=== PATIENT | female | born 1965 | race Caucasian/White ===

== ENCOUNTER 2019-04-21 10:14 | Inpatient (IN) | payer OTHER ==
[~2019-04-21] VITALS: Ht 160 cm; Wt 61.2 kg
[~2019-04-21 10:14] MED LIST: ZOSYN 3.375 GM/50 ML IV SCH
--- NOTE | 2019-04-21 10:24 | NUR ---
ARRIVAL PT ARRIVED AMBULATORY TO ER 4. PT HAS BEEN TREATED FOR UPPER RESPIRATORY INFECTION X2 WEEKS. PT HAS BEEN ON MULTIPLE MEDICATIONS, IS CURRENTLY TAKING MUCINEX, ALBUTEROL BREATHING TREATMENTS, LEVAQUIN AND DOXYCYCLINE. PT RECENTLY SPENT 6 WEEKS IN THE [facility]. NO ACUTE DISTRESS NOTED. EDP NOTIFIED OF PT ARRIVAL.
[2019-04-21] MEDS ORDERED: PREDNISONE PO STA (10:44)
[2019-04-21] MEDS ORDERED: DILAUDID IM STA (10:44)
[2019-04-21] MEDS ORDERED: MOTRIN PO STA (10:44)
[2019-04-21 10:47] VITALS: BP 145/98
[2019-04-21] MEDS ORDERED: ATIVAN PO STA (10:47)
--- NOTE | 2019-04-21 10:49 | PCM.EKG ---
[facility] Test Date: 2019-04-21 Test Time: 10:50:09 Pat Name: SHAHRZAD MCBRIDE Department: Room: 311 Gender: F Floral Arranger: BETY : 1965 Requested By: JUAN DIEGO MCKAY Order Number: [id number] Reading MD: Juan Diego Mckay Measurements Intervals [place] Rate: 125 P: 35 RI: 150 QRS: 10 QRSD: 72 T: 21 QT: 308 QTc: 444 Interpretive Statements Sinus tachycardia Otherwise normal ECG No previous ECG available for comparison Electronically Signed On 04-21-2019 18:00:19 CDT by Juan Diego Mckay Please click the below link to view image of tracing.
--- NOTE | 2019-04-21 10:51 | ER.PDOC ---
General Chief Complaint: General Complaint Stated Complaint: PNEUMONIA TRAVEL OUT OF US: No Time seen by MD: 11:11 Source: patient Exam Limitations: no limitations History of Present Illness Timing/Duration: 1 week Severity: moderate Modifying Factors: improves with medication, improves with rest Associated Symptoms: chest pain, cough, diaphoresis, fever/chills, headaches, loss of appetite, malaise, nausea/vomiting, shortness of breath, weakness Allergies: Coded Allergies: No Known Allergies (Unverified , 04/21/19) Home Meds Reported Medications Losartan Potassium (LOSARTAN POTASSIUM) 50 Mg Tablet, 1 TAB PO DAILY, #30 TAB 5 Refills 04/21/19 Metoprolol Succinate (METOPROLOL SUCCINATE) 50 Mg Tab.er.24h, 1 TAB PO DAILY, #30 TAB 5 Refills 04/21/19 Levothyroxine Sodium (LEVOTHYROXINE SODIUM) 50 Mcg Tablet, 1 TAB PO DAILY, #30 TAB 5 Refills 04/21/19 Past Medical History Medical History: hypertension, thyroid disease Surgical History: breast augmentation, , gastric bypass, shoulder Social History Smoking: non-smoker Alcohol Use: none Drug Use: none Reviewed Nursing Reviewed: Vital Signs, Abn. 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 (04/21/19 10:41) Helicobacter Pylori (04/21/19 10:41) D-Dimer (04/21/19 10:41) Ekg-Routine (04/21/19 10:41) Xr Chest 2v (04/21/19 10:41) Influenza A&B (04/21/19 10:41) Drug Screen Medical(Ml) (04/21/19 10:44) Hydromorphone Inj (Dilaudid) (04/21/19 10:44) Ibuprofen (Motrin) (04/21/19 10:44) Erythrocyte Sedimentation Rate (04/21/19 10:44) C-Reactive Protein (04/21/19 10:44) Prednisone (Prednisone) (04/21/19 10:44) Lorazepam (Ativan) (04/21/19 10:47) Urinalysis (04/21/19 10:48) Lorazepam (Ativan) (04/21/19 11:07) Ibuprofen (Motrin) (04/21/19 11:08) Prednisone (Prednisone) (04/21/19 11:09) Hydromorphone Inj (Dilaudid) (04/21/19 11:09) Blood Culture (04/21/19 11:25) Ipratropium/Albuterol Sulfate (Duoneb 0. (04/21/19 11:29) Dexamethasone Sod Phosphate (Decadron) (04/21/19 11:29) Hiv Panel 1,2(Ml) (04/21/19 11:36) Vital Signs Date Time Temp Pulse Resp B/P (MAP) Pulse Ox O2 Delivery O2 Flow Rate FiO2 04/21/19 11:47 117 135/84 (101) 97 04/21/19 10:47 125 17 145/98 (114) Room Air 04/21/19 10:24 98.8 127 17 97 Room Air 98.8 04/21/19 10:24 98.8 125 17 98.8 Administered Medications Medications (Trade) Dose Ordered Sig/[place] Route PRN Reason Start Time Stop Time Status Last Admin Dose Admin Albuterol/ Ipratropium (Duoneb 0.5 Mg-3 Mg/3 ml Soln) 3 ml STAT STAT IH 04/21/19 11:29 04/21/19 13:47 DC 04/21/19 12:34 3 ML Dexamethasone Sodium Phosphate (Decadron) 4 mg STAT STAT IH 04/21/19 11:29 04/21/19 13:47 DC 04/21/19 12:34 4 MG Hydromorphone HCl (Dilaudid) 2 mg STAT STAT IM 04/21/19 10:44 04/21/19 10:47 DC 04/21/19 11:26 2 MG Ibuprofen (Motrin) 800 mg STAT STAT PO 04/21/19 10:44 04/21/19 10:47 DC 04/21/19 11:27 800 MG Prednisone (Prednisone) 40 mg STAT STAT PO 04/21/19 10:44 04/21/19 10:47 DC 04/21/19 11:27 40 MG Laboratory Tests Test 04/21/19 11:15 04/21/19 11:17 04/21/19 11:19 White Blood Count 8.9 10^3/uL (4.5-11.0) Red Blood Count 3.62 10^6/uL (4.00-5.20) L Hemoglobin 13.0 g/dL (12.0-15.0) Hematocrit 37.5 % (36.0-46.0) Mean Corpuscular Volume 103.6 fL (78-100) H Mean Corpuscular Hemoglobin 35.9 pg (26-34) H Mean Corpuscular Hemoglobin Concent 34.7 g/dL (33-37) Red Cell Distribution Width 12.1 % (11.5-14.5) Platelet Count 329 10^3/uL (150-400) Mean Platelet Volume 9.1 fL (7.8-11.0) Neutrophils (%) (Auto) 84.0 % (41.0-85.0) Lymphocytes (%) (Auto) 8.9 % (24.0-44.0) L Monocytes (%) (Auto) 3.8 % (5.0-12.0) L Neutrophils # (Auto) 7.5 10^3/uL (1.8-7.7) Lymphocytes # (Auto) 0.8 10^3/uL (1.0-4.8) L Monocytes # (Auto) 0.3 10^3/uL (0.3-0.8) Absolute Immature Granulocyte (auto 0.03 10^3 u/L (0-2) Immature Granulocytes % 0.30 % (0.00-0.50) Eosinophils % 2.7 % (0.0-5.0) Basophils % 0.3 % (0.0-0.2) H Basophils # 0.0 10^3/uL (0.0-0.1) Erythrocyte Sedimentation Rate 56 mm/hr (0-20) H Eosinophil Count 0.2 10^3/uL (0.0-0.2) Prothrombin Time 9.9 SEC (9.8-11.9) Prothrombin Time INR (Non-Therap) 1.0 PTT 24.5 SEC (24.67-30.72) D-Dimer 1.20 mg/L (0.19-0.49) *H Sodium Level 139 mmol/L (132-145) Potassium Level 4.2 mmol/L (3.6-5.2) Chloride Level 105.0 mmol/L (96-109) Carbon Dioxide Level 25.8 mmol/L (20.0-32) Anion Gap 12.4 Blood Urea Nitrogen 5 mg/dL (7-18) L Creatinine 0.90 mg/dL (0.59-1.40) Estimated GFR () 79.6 (>/=60) BUN/Creatinine Ratio 5.0 Glucose Level 95 mg/dL (70-110) Calcium Level 9.3 mg/dL (8.4-10.5) Total Bilirubin 0.6 mg/dL (0.2-1.0) Aspartate Amino Transferase (AST) 19 U/L (0-35) Alanine Aminotransferase (ALT) 23 U/L (12-78) Alkaline Phosphatase 88 U/L (50-136) Total Creatine Kinase 36 U/L (26-192) Troponin I < 0.02 ng/mL (0.00-0.05) C-Reactive Protein 11.89 mg/dL (0.00-5.00) H Pro-B-Type Natriuretic Peptide 260 pg/mL (0-125) H Total Protein 7.6 g/dL (6.4-8.2) Albumin 3.3 g/dL (3.4-5.0) L Globulin 4.3 Urine Opiates, Qualitative NEGATIVE ng/mL (CUT-OFF:300) Urine Methadone, Qualitative NEGATIVE ng/mL (CUT-OFF:300) Urine Amphetamine Qualitative NEGATIVE ng/mL (CUTOFF:1000) Urine Barbiturates, Qualitative NEGATIVE ng/mL (CUT-OFF:200) Urine Phencyclidine Screen NEGATIVE ng/mL (CUT-OFF:25) Urine MDMA (Ecstasy), Qualitative NEGATIVE ng/mL (CUT-OFF:300) Urine Benzodiazepines Screen POSITIVE ng/mL (CUT-OFF:200) Urine Cocaine Qualitative NEGATIVE ng/mL (CUT-OFF:300) Ur Tetrahydrocannabinol (THC) Scrn NEGATIVE ng/mL (CUT-OFF:50) Helicobacter pylori Screen POSITIVE (NEGATIVE) HIV-1 Antibody NON-REACTIVE (NONREACTIVE) HIV-2 Antibody NON-REACTIVE (NONREACTIVE) Influenza Type A Antigen NEGATIVE (NEG) Influenza B Immunofluorescence NEGATIVE (NEG) Urine Collection Type VOID Urine Color YELLOW (YELLOW) Urine Appearance CLEAR (CLEAR) Urine Bilirubin NEGATIVE MG/DL (NEGATIVE) Urine Ketones NEGATIVE (NEGATIVE) Urine Specific [place] 1.005 (1.005-1.035) Urine pH 6 (5.0-6.0) Urine Protein NEGATIVE (NEGATIVE) Urine Urobilinogen NORMAL (NEGATIVE) Urine Nitrate NEGATIVE (NEGATIVE) Urine Leukocyte Esterase NEGATIVE (NEGATIVE) Urine Blood NEGATIVE (NEGATIVE) Urine Glucose NORMAL (NEGATIVE) EKG/XRAY/CT/US EKG Comments: SINUS TACH XRAY: chest Consult/PCP Time Consult/PCP Called: 14:44 Consult/PCP: dr hayes Course Sepsis Screening Results: Posi: POSITIVE SEPSIS RISK Vitals & review Data Vital Sign - Last 24 Hours 04/21/19 04/21/19 04/21/19 04/21/19 10:24 10:24 10:47 11:47 Temp 98.8 98.8 98.8 98.8 Pulse 125 127 125 117 Resp 17 17 17 B/P (MAP) 145/98 (114) 135/84 (101) Pulse Ox 97 97 O2 Delivery Room Air Room Air Laboratory Tests Test 04/21/19 11:15 04/21/19 11:17 04/21/19 11:19 White Blood Count 8.9 10^3/uL Red Blood Count 3.62 10^6/uL Hemoglobin 13.0 g/dL Hematocrit 37.5 % Mean Corpuscular Volume 103.6 fL Mean Corpuscular Hemoglobin 35.9 pg Mean Corpuscular Hemoglobin Concent 34.7 g/dL Red Cell Distribution Width 12.1 % Platelet Count 329 10^3/uL Mean Platelet Volume 9.1 fL Neutrophils (%) (Auto) 84.0 % Lymphocytes (%) (Auto) 8.9 % Monocytes (%) (Auto) 3.8 % Neutrophils # (Auto) 7.5 10^3/uL Lymphocytes # (Auto) 0.8 10^3/uL Monocytes # (Auto) 0.3 10^3/uL Absolute Immature Granulocyte (auto 0.03 10^3 u/L Immature Granulocytes % 0.30 % Eosinophils % 2.7 % Basophils % 0.3 % Basophils # 0.0 10^3/uL Erythrocyte Sedimentation Rate 56 mm/hr Eosinophil Count 0.2 10^3/uL Prothrombin Time 9.9 SEC Prothrombin Time INR (Non-Therap) 1.0 Activated Partial Thromboplast Time 24.5 SEC D-Dimer 1.20 mg/L Sodium Level 139 mmol/L Potassium Level 4.2 mmol/L Chloride Level 105.0 mmol/L Carbon Dioxide Level 25.8 mmol/L Anion Gap 12.4 Blood Urea Nitrogen 5 mg/dL Creatinine 0.90 mg/dL Estimated GFR () 79.6 BUN/Creatinine Ratio 5.0 Glucose Level 95 mg/dL Calcium Level 9.3 mg/dL Total Bilirubin 0.6 mg/dL Aspartate Amino Transf (AST/SGOT) 19 U/L Alanine Aminotransferase (ALT/SGPT) 23 U/L Alkaline Phosphatase 88 U/L Total Creatine Kinase 36 U/L Troponin I < 0.02 ng/mL C-Reactive Protein 11.89 mg/dL Pro-B-Type Natriuretic Peptide 260 pg/mL Total Protein 7.6 g/dL Albumin 3.3 g/dL Globulin 4.3 Urine Opiates, Qualitative NEGATIVE ng/mL Urine Methadone, Qualitative NEGATIVE ng/mL Urine Amphetamine Qualitative NEGATIVE ng/mL Urine Barbiturates, Qualitative NEGATIVE ng/mL Urine Phencyclidine Screen NEGATIVE ng/mL Urine MDMA (Ecstasy), Qualitative NEGATIVE ng/mL Urine Benzodiazepines Screen POSITIVE ng/mL Urine Cocaine Qualitative NEGATIVE ng/mL Ur Tetrahydrocannabinol (THC) Scrn NEGATIVE ng/mL Helicobacter pylori Screen POSITIVE HIV-1 Antibody NON-REACTIVE HIV-2 Antibody NON-REACTIVE Influenza Type A Antigen NEGATIVE Influenza B Immunofluorescence NEGATIVE Urine Collection Type VOID Urine Color YELLOW Urine Appearance CLEAR Urine Bilirubin NEGATIVE MG/DL Urine Ketones NEGATIVE Urine Specific [place] 1.005 Urine pH 6 Urine Protein NEGATIVE Urine Urobilinogen NORMAL Urine Nitrate NEGATIVE Urine Leukocyte Esterase NEGATIVE Urine Blood NEGATIVE Urine Glucose NORMAL Sepsis Infection Criteria Pres: None O2 Sat by Pulse Oximetry: 97 Departure Time of Disposition: 18:00 Disposition: 09 ADMITTED INPATIENT Impression: Primary Impression: Pneumonia Condition: Stable Referrals: DENNISE LIZARRAGA (PCP) PRIMARY CARE PROVIDER Duration or Time Spent with Pa: 1 hr LESLY MAJOR MD Apr 21, 2019 10:51
[2019-04-21] MEDS ORDERED: ATIVAN ONE (11:07)
[2019-04-21] MEDS ORDERED: MOTRIN ONE (11:08)
[2019-04-21] MEDS ORDERED: DILAUDID ONE (11:09)
[2019-04-21] MEDS ORDERED: PREDNISONE ONE (11:09)
[2019-04-21 11:20] LABS: BASOPHIL % 0.3 % (0.0-0.2); EOSINOPHIL # 0.2 10^3/uL (0.0-0.2); EOSINOPHIL % 2.7 % (0.0-5.0); LYMPHOCYTES # 0.8 10^3/uL (1.0-4.8); LYMPHOCYTES % 8.9 % (24.0-44.0); MEAN CELL HGB 35.9 pg (26-34); MEAN CELL HGB CONCENTRATION 34.7 g/dL (33-37); MEAN CORP VOLUME 103.6 fL (78-100); MEAN PLATELET VOLUME 9.1 fL (7.8-11.0); MONOCYTES # 0.3 10^3/uL (0.3-0.8); MONOCYTES % 3.8 % (5.0-12.0); NEUTROPHIL # 7.5 10^3/uL (1.8-7.7); RED CELL DISTRIBUTION WIDTH 12.1 % (11.5-14.5); WHITE BLOOD CELL 8.9 10^3/uL (4.5-11.0)
--- NOTE | 2019-04-21 11:26 | NUR ---
[facility] CALLED [facility] DEPT D/T PT RECENTLY TRAVELS TO [facility], LEFT A MESSAGE FOR CALLBACK TO WHAT LABS NEED TO BE DRAWN.
[2019-04-21] MEDS ORDERED: DUONEB 0.5 MG-3 MG/3 ML SOLN IH STA (11:29)
[2019-04-21] MEDS ORDERED: DECADRON IH STA (11:29)
--- NOTE | 2019-04-21 11:30 | DIREP ---
PROCEDURE:CHEST 2 VIEWS COMPARISON:None. INDICATIONS:COUGH, DYSPNEA, CHEST PAIN FINDINGS: LUNGS/PLEURA:Scattered infiltrate in the right lung field and left lower infrahilar region. VASCULATURE:Normal. Unremarkable pulmonary vasculature. CARDIAC:Normal. No cardiac silhouette abnormality or cardiomegaly. MEDIASTINUM:Normal. No visible mass or adenopathy. BONES:Normal. No fracture or visible bony lesion. OTHER:Clips in the right upper quadrant CONCLUSION:Scattered infiltrate in the right lung field and left infrahilar region. Dictated by: Bill Zarate MD on 04/21/2019 at 11:28 AM
[2019-04-21 11:38] LABS: BILIRUBIN,URINE NEGATIVE (NEGATIVE); UROBILINOGEN,URINE NORMAL (NEGATIVE)
[2019-04-21 11:40] LABS: UA COLOR YELLOW (YELLOW)
[2019-04-21 11:41] LABS: APPEARANCE,URINE CLEAR (CLEAR)
[2019-04-21 11:45] LABS: ALANINE AMINOTRANSFERASE(ML) 23 U/L (12-78); ALKALINE PHOSPHATASE 88 U/L (50-136); ASPARTATE AMINO TRANSFERASE 19 U/L (0-35); CALCIUM 9.3 mg/dL (8.4-10.5); CARBON DIOXIDE 25.8 mmol/L (20.0-32); GLUCOSE 95 mg/dL (70-110)
[2019-04-21 11:47] VITALS: BP 135/84
--- NOTE | 2019-04-21 11:48 | NUR ---
MADALYN MAJOR ON PHONE WITH DR BERGMAN AT THIS TIME REGARDING PT.
--- NOTE | 2019-04-21 11:54 | ER.PDOC ---
General Chief Complaint: General Complaint Stated Complaint: DYSPNEA Time seen by MD: 11:44 Source: patient Exam Limitations: no limitations History of Present Illness Timing/Duration: 1 week Severity: moderate Activities at Onset: activity/exertion, emotional stress, rest Prior Episodes/Possible Cause: no prior episodes Modifying Factors: improves with albuterol inhaler, improves with oxygen, improves with rest Associated Symptoms: cough, diaphoresis, weakness, wheezing Prior symptoms/Treatment: Similar symptoms previous, Recenly Seen, Treated by Doctor Allergies: Coded Allergies: No Known Allergies (Unverified , 04/21/19) Past Medical History Medical History: hypertension, thyroid disease Surgical History: breast augmentation, , gastric bypass, shoulder Social History Smoking: non-smoker Alcohol Use: none Drug Use: none Review of Systems All Other Systems: Reviewed and Negative Physical Exam General Appearance: No Apparent Distress HEENT: PERRL/EOMI Neck: Non-Tender Respiratory: rhonchi, stridor Cardiovascular: Tachycardia Gastrointestinal: Normal Bowel Sounds, No Organomegaly, No Pulsatile Mass, Non Tender, Soft Extremities: Normal Range of Motion, Non-Tender, Normal Inspection, No Pedal Edema, No Calf Tenderness, Normal Capillary Refill 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 (04/21/19 10:41) Helicobacter Pylori (04/21/19 10:41) D-Dimer (04/21/19 10:41) Ekg-Routine (04/21/19 10:41) Xr Chest 2v (04/21/19 10:41) Influenza A&B (04/21/19 10:41) Drug Screen Medical(Ml) (04/21/19 10:44) Hydromorphone Inj (Dilaudid) (04/21/19 10:44) Ibuprofen (Motrin) (04/21/19 10:44) Erythrocyte Sedimentation Rate (04/21/19 10:44) C-Reactive Protein (04/21/19 10:44) Prednisone (Prednisone) (04/21/19 10:44) Lorazepam (Ativan) (04/21/19 10:47) Urinalysis (04/21/19 10:48) Vital Signs Date Time Temp Pulse Resp B/P (MAP) Pulse Ox O2 Delivery O2 Flow Rate FiO2 04/21/19 10:24 98.8 127 17 97 Room Air 98.8 04/21/19 10:24 98.8 125 17 98.8 EKG/XRAY/CT/US EKG: no ST T wave changes EKG Comments: SINUS TACH Consult/PCP Time Consult/PCP Called: 11:55 Consult/PCP: DR BERGMAN Course Sepsis Screening Results: Posi: POSITIVE SEPSIS RISK Vitals & review Data Vital Sign - Last 24 Hours 04/21/19 04/21/19 10:24 10:24 Temp 98.8 98.8 98.8 98.8 Pulse 125 127 Resp 17 17 Pulse Ox 97 O2 Delivery Room Air Sepsis Infection Criteria Pres: None O2 Sat by Pulse Oximetry: 97 Departure Time of Disposition: 12:22 Disposition: 09 ADMITTED INPATIENT Impression: Primary Impression: Pneumonia Condition: Improved Referrals: DENNISE LIZARRAGA (PCP) PRIMARY CARE PROVIDER Duration or Time Spent with Pa: 1 HR LESLY MAJOR MD Apr 21, 2019 11:54
[2019-04-21] MEDS ORDERED: DUONEB 0.5 MG-3 MG/3 ML SOLN IH SCH ×2 (12:00→21:00)
[2019-04-21] MEDS ORDERED: ZOSYN 3.375 GM/50 ML IV SCH (12:00)
[2019-04-21] MEDS ORDERED: METO-237 PO (12:25)
[2019-04-21] MEDS ORDERED: LEVO50TA6 PO (12:25)
[2019-04-21] MEDS ORDERED: LOSA50TA14 PO (12:25)
[2019-04-21] MEDS ORDERED: VANCOMYCIN HCL 1 GM ONE (12:27)
[2019-04-21] MEDS ORDERED: NS 250ML 250 ML IV ONE (12:27)
[2019-04-21 12:47] VITALS: BP 138/87
[2019-04-21] MEDS: NS 1000ML 1,000 ML SCH ×2 (12:47→22:00)
--- NOTE | 2019-04-21 12:55 | NUR ---
ARRIVAL PATIENT ARRIVED ON MED-SURG UNIT AT THIS TIME TO ROOM #311. RECEIVED REPORT, ASSUMED CARE FOR PATIENT AT THIS TIME.
--- NOTE | 2019-04-21 13:01 | NUR ---
MEDR PT TO [facility] VIA TRANSPORT CHAIR. REPORT TO EBONI LÓPEZ. BELONGINGS SENT WITH PT.
[2019-04-21] MEDS ORDERED: DIFLUCAN PO ONE (13:30)
--- NOTE | 2019-04-21 13:55 | PCM.HP ---
History of Present Illness Reason for Visit: dyspnea x 10 days History of Present Illness Patient is a 53 F PMH of HTN, Migraine Headaches, and Hypothyroidism who presents with dyspnea x 10 days. Patient treated for Pneumonia/URI outpatient but symptoms have not resolved. Patient presents to ER with dyspnea and tachycardia but she is not febrile she is not tachycardic and she is not hypoxic. Patient has had fever, chills, fatigue over the last 10 days. She had RI, PO abx (Doxycycline), and expectorant outpatient. Patient also has frequent oversee travel to [facility] for two weeks in the last month. Patient was on airplane for over 16 hour flights [address]. She denies current lower extremity pain/swelling. D-Dimer is elevated on lab evaluation. Patient labs/imaging reviewed. Her is present with her during my evaluation. Patient is in mild distress. She is alert, oriented, chest denies chest pain. She is not requiring O2 support. I discussed need for CTA for further evaluation of lung disease and to rule out PE and she is agreeable. I discussed overall plan of care and patient verbalizes understanding/agreement with plan of care. EKG shows sinus tachycardia with no acute ischemic changes. Past Medical History Cardiac: HTN FIELD REPRESENTATIVE: Migraine Endocrine: Hypothyroidism Past Surgical History: (x2), Other (Breast Augmentation) Past Social History Smoke: No Alcohol: occassional Drugs: None Lives: with Family Travel Hx EBOLA RISK:Travel to/contact w: No Is pt experiencing any Ebola s: No Review of Systems Constitutional: Fever, Chills Eyes: No: Conjunctivae inflammation, Eyelid inflammation ENT: Nose discharge, Nose congestion Respiratory: Cough, Shortness of breath, SOB with excertion, Wheezing Cardiovascular: No: Chest Pain, Palpitations, Edema Gastrointestinal: No: Nausea, Vomiting, Abdominal Pain Genitourinary: No Hematuria, No Retention Musculoskeletal: neck pain, back pain; No: leg pain, foot pain Skin: No: Rash, Lesions, Jaundice, Bruising Neurological: No: Weakness, Numbness, Incoordination, Change in speech, Confusion, Seizures Allergies: Coded Allergies: No Known Allergies (Unverified , 04/21/19) Scheduled Levothyroxine Sodium (Levothyroxine Sodium), 1 TAB PO DAILY, (Reported) Losartan Potassium (Losartan Potassium), 1 TAB PO DAILY, (Reported) Metoprolol Succinate (Metoprolol Succinate), 1 TAB PO DAILY, (Reported) VTE VTE Risk Score VTE Risk: Score 0-1 = Low Risk (Aggressive mobilization; early ambulation; no VTE prophylaxis required) Score 2: Moderate Risk (Intermittent/Pneumatic Compression Device OR Lovenox/Heparin/Coumadin) Score 3-4: High Risk (Intermittent/Pneumatic Compression Device AND Lovenox/Heparin/Coumadin) Score > or =5: Highest Risk (Intermittent/Pneumatic Compression Device AND Lovenox/Heparin/Coumadin) Exam Vital Signs Vital Signs Date Time Temp Pulse Resp B/P (MAP) Pulse Ox O2 Delivery O2 Flow Rate FiO2 04/21/19 12:47 115 138/87 (104) 99 04/21/19 12:38 22 04/21/19 10:47 Room Air 04/21/19 10:24 98.8 98.8 General Appearance: Alert, Oriented X3, Cooperative, mild distress HEENT: Atraumatic, PERRLA, EOMI, Mucous membr. moist/pink Respiratory: Clear to auscultation, Normal air movement Cardiovascular: Normal S1, Normal S2, No murmurs, Other (tachycardic) Abdominal: Normal bowel sounds, Soft, No tenderness Extremities: No edema, Normal pulses, No tenderness/swelling Skin: No lesions, Rash, Breakdown Neuro: Normal speech, Strength at 5/5 X4 ext, Normal tone, Sensation intact, Cranial nerves 3-12 NL Psych/Mental Status: Mental status NL, Mood NL Assessment/Plan Assessment/Plan Assessment/Plan Patient is a 53 F PMH of HTN, Migraine Headaches, and Hypothyroidism who presents with dyspnea x 10 days. Plan 1. Community Acquired Pneumonia: failed outpatient therapy. Cont IV abx (Zosyn, Azithromycin). We will order CTA for further evaluation. cont Nebs, O2 support if needed. 2. Tachycardia/Elevated D-Dimer: CTA ordered to rule out PE. 3. HTN: cont BB/ARB 4. Yeast Infection: Diflucan PO x 1 5. Muscle spasms: Baclofen PRN 6. Hypothyroidism: cont synthroid 7. PPx: PPI, Lovenox MADDY BERGMAN MD Apr 21, 2019 13:55
[2019-04-21] MEDS ORDERED: DURAMORPH IV PRN (14:00)
[2019-04-21] MEDS: ZITHROMAX 500 MG in NS 250ML 250 ML IV SCH (15:03)
[2019-04-21] MEDS: ZOFRAN IV PRN (15:03)
[2019-04-21] MEDS: LOVENOX SQ SCH (15:08)
[2019-04-21 15:28] VITALS: BP 154/54
[2019-04-21] MEDS ORDERED: TOPROL XL PO STA (15:35)
--- NOTE | 2019-04-21 15:37 | NUR ---
CONTACTED AT THIS TIME TO NOTIFY OF PULSE OF 120s. RECEIVED ORDERS FOR STAT DOSE OF METOPROLOL 50MG.
[2019-04-21] MEDS ORDERED: DIFLUCAN ONE (15:40)
[2019-04-21] MEDS ORDERED: LIORESAL PO SCH (17:00)
--- NOTE | 2019-04-21 18:36 | NUR ---
REPORT REPORT GIVEN TO ONCOMING SHIFT, RELINQUISHED CARE FOR PATIENT AT THIS TIME.
--- NOTE | 2019-04-21 19:56 | DIREP ---
PROCEDURE:CT PULMONARY ANGIOGRAM TECHNIQUE:Following the intravenous administration of contrast material, axial cuts were obtained through the chest. Multiplanar / 3-D reconstructions are provided. Satisfactory pulmonary arterial contrast opacification was achieved. The images were viewed at lung and soft tissue settings. COMPARISON:None. INDICATIONS:dyspnea FINDINGS: PULMONARY ARTERIES:Patent. LUNGS:Right-diffuse scattered ground-glass infiltrates, and occasional infiltrates in the left lung. CARDIAC:Normal size heart and normal pulmonary vascularity. THYROID:Normal. THORACIC AORTA:Atherosclerotic disease MEDIASTINUM:Scattered mediastinal small lymph nodes PLEURA:Normal. BONES:Normal. OTHER: CONCLUSION: 1. No pulmonary embolism. 2. Scattered diffuse right-sided ground-glass infiltrates and occasional infiltrates the left lung suggesting infectious process or pneumonia. 3. [id number] hiatal hernia with layering debris in the mid esophagus. Could suggest aspiration pneumonia. Please note the study was performed at 13:47 however was not uploaded until 19:47, this could be a software timing error. Dictated by: Bill Zarate MD on 04/21/2019 at 07:47 PM
[2019-04-21 20:00] VITALS: BP 121/82
[2019-04-21] MEDS ORDERED: VANCOMYCIN HCL 1 GM in NS 250ML 250 ML IV SCH (21:00)
[2019-04-21] MEDS: DUONEB 0.5 MG-3 MG/3 ML SOLN IH PRN (21:38)
[2019-04-21] MEDS ORDERED: NS 100ML 100 ML IV ONE (23:46)
[2019-04-21] MEDS ORDERED: ZOSYN 3.375 GRAM VIAL IV ONE (23:47)
[2019-04-22 00:10] VITALS: BP 131/99
[2019-04-22 05:00] VITALS: BP 130/93
[2019-04-22] MEDS ORDERED: ZOSYN 3.375 GRAM VIAL IV ONE (05:16)
[2019-04-22] MEDS ORDERED: NS 100ML 100 ML IV ONE (05:16)
[2019-04-22 05:26] LABS: EOSINOPHIL % 0.1 % (0.0-5.0); HEMOGLOBIN 11.2 g/dL (12.0-15.0); LYMPHOCYTES # 0.7 10^3/uL (1.0-4.8); LYMPHOCYTES % 10.2 % (24.0-44.0); MEAN CELL HGB CONCENTRATION 34.7 g/dL (33-37); MEAN CORP VOLUME 103.9 fL (78-100); MEAN PLATELET VOLUME 9.2 fL (7.8-11.0); MONOCYTES # 0.4 10^3/uL (0.3-0.8); MONOCYTES % 5.4 % (5.0-12.0); NEUTROPHIL # 5.9 10^3/uL (1.8-7.7); NEUTROPHILS % 83.7 % (41.0-85.0); RED CELL DISTRIBUTION WIDTH 11.7 % (11.5-14.5); WHITE BLOOD CELL 7.1 10^3/uL (4.5-11.0)
[2019-04-22 05:49] LABS: CALCIUM 8.7 mg/dL (8.4-10.5); CARBON DIOXIDE 23.4 mmol/L (20.0-32)
[2019-04-22] MEDS: NS IV SCH ×3 (06:00→19:09)
[2019-04-22] MEDS: ZOSYN IV SCH ×3 (06:00→19:09)
[2019-04-22] MEDS: SYNTHROID PO SCH (06:13)
[2019-04-22] MEDS: TYLENOL PO PRN (06:26)
[2019-04-22 08:01] VITALS: BP 137/94
[2019-04-22] MEDS: DUONEB 0.5 MG-3 MG/3 ML SOLN IH PRN ×3 (08:27→21:44)
[2019-04-22] MEDS: COZAAR PO SCH (09:15)
[2019-04-22] MEDS: PROTONIX PO SCH (09:15)
[2019-04-22] MEDS: TOPROL XL PO SCH (09:15)
[2019-04-22] MEDS ORDERED: DIFLUCAN PO STA (09:54)
[2019-04-22] MEDS: NS 1000ML 1,000 ML SCH (09:59)
--- NOTE | 2019-04-22 10:04 | PRM.PN ---
Subjective Subjective Date: Apr 22, 2019 Time: 09:45 Subjective Patient feeling better, still having symptoms from yeast infection. Labs, imaging reviewed. VTE VTE Risk Total Score: 1 VTE Risk Score VTE Risk: Score 0-1 = Low Risk (Aggressive mobilization; early ambulation; no VTE prophylaxis required) Score 2: Moderate Risk (Intermittent/Pneumatic Compression Device OR Lovenox/Heparin/Coumadin) Score 3-4: High Risk (Intermittent/Pneumatic Compression Device AND Lovenox/Heparin/Coumadin) Score > or =5: Highest Risk (Intermittent/Pneumatic Compression Device AND Lovenox/Heparin/Coumadin) Review of Systems Allergies: Coded Allergies: No Known Allergies (Unverified , 04/21/19) Scheduled Levothyroxine Sodium (Levothyroxine Sodium), 1 TAB PO DAILY, (Reported) Losartan Potassium (Losartan Potassium), 1 TAB PO DAILY, (Reported) Metoprolol Succinate (Metoprolol Succinate), 1 TAB PO DAILY, (Reported) Objective Vitals and I/O Vital Sign - Last 24 Hours 04/21/19 04/21/19 04/21/19 04/21/19 10:24 10:24 10:47 11:47 Temp 98.8 98.8 98.8 98.8 Pulse 125 127 125 117 Resp 17 17 17 B/P (MAP) 145/98 (114) 135/84 (101) Pulse Ox 97 97 O2 Delivery Room Air Room Air 04/21/19 04/21/19 04/21/19 04/21/19 12:12 12:36 12:38 12:47 Pulse 115 117 115 Resp 22 22 22 B/P (MAP) 138/87 (104) Pulse Ox 94 94 94 99 04/21/19 04/21/19 04/21/19 04/21/19 14:18 15:28 15:31 15:46 Pulse 122 122 Resp 18 B/P (MAP) 154/54 (87) 154/54 O2 Delivery Room Air Room Air Room Air 04/21/19 04/21/19 04/21/19 04/21/19 16:41 20:00 20:15 21:36 Temp 97.7 97.7 Pulse 101 87 87 Resp 18 18 B/P (MAP) 121/82 (95) Pulse Ox 95 94 O2 Delivery Room Air Room Air 04/21/19 04/22/19 04/22/19 6/24/19 21:50 00:10 05:00 08:01 Temp 97.5 97.6 97.8 97.5 97.6 97.8 Pulse 73 82 82 76 Resp 18 18 18 18 B/P (MAP) 131/99 (110) 130/93 (105) 137/94 (108) Pulse Ox 99 95 97 99 O2 Delivery Room Air Room Air 04/22/19 04/22/19 04/22/19 04/22/19 08:27 08:35 09:15 09:15 Pulse 90 90 90 Resp 18 18 B/P (MAP) 137/94 137/94 Pulse Ox 98 99 Intake and Output 04/21/19 04/21/19 04/22/19 15:00 23:00 07:00 Intake Total 120 ml 300 ml Output Total 400 ml Balance -280 ml 300 ml General: Alert, Oriented X3, Cooperative, No acute distress HEENT: Atraumatic, PERRLA, EOMI, Mucous membr. moist/pink Neck: Supple, No JVD Lungs: Clear to auscultation, Normal air movement Heart: Normal S1, Normal S2, No murmurs, Other (tachycardic) Abdomen: Normal bowel sounds, Soft, No tenderness Extremities: No edema, Normal pulses, No tenderness/swelling Skin: No rashes, No breakdown, No significant lesion Neuro: Normal speech, Strength at 5/5 X4 ext, Normal tone, Sensation intact, Cranial nerves 3-12 NL Psych/Mental Status: Mental status NL, Mood NL All Results(Lab/Rad) Laboratory Tests Test 04/21/19 11:15 04/21/19 11:17 04/21/19 11:19 04/22/19 05:11 White Blood Count 8.9 10^3/uL 7.1 10^3/uL Red Blood Count 3.62 10^6/uL 3.11 10^6/uL Hemoglobin 13.0 g/dL 11.2 g/dL Hematocrit 37.5 % 32.3 % Mean Corpuscular Volume 103.6 fL 103.9 fL Mean Corpuscular Hemoglobin 35.9 pg 36.0 pg Mean Corpuscular Hemoglobin Concent 34.7 g/dL 34.7 g/dL Red Cell Distribution Width 12.1 % 11.7 % Platelet Count 329 10^3/uL 332 10^3/uL Mean Platelet Volume 9.1 fL 9.2 fL Neutrophils (%) (Auto) 84.0 % 83.7 % Lymphocytes (%) (Auto) 8.9 % 10.2 % Monocytes (%) (Auto) 3.8 % 5.4 % Neutrophils # (Auto) 7.5 10^3/uL 5.9 10^3/uL Lymphocytes # (Auto) 0.8 10^3/uL 0.7 10^3/uL Monocytes # (Auto) 0.3 10^3/uL 0.4 10^3/uL Absolute Immature Granulocyte (auto 0.03 10^3 u/L 0.04 10^3 u/L Immature Granulocytes % 0.30 % 0.60 % Eosinophils % 2.7 % 0.1 % Basophils % 0.3 % 0.0 % Basophils # 0.0 10^3/uL 0.0 10^3/uL Erythrocyte Sedimentation Rate 56 mm/hr Eosinophil Count 0.2 10^3/uL 0.0 10^3/uL Prothrombin Time 9.9 SEC Prothrombin Time INR (Non-Therap) 1.0 Activated Partial Thromboplast Time 24.5 SEC D-Dimer 1.20 mg/L Sodium Level 139 mmol/L 143 mmol/L Potassium Level 4.2 mmol/L 4.2 mmol/L Chloride Level 105.0 mmol/L 111.0 mmol/L Carbon Dioxide Level 25.8 mmol/L 23.4 mmol/L Anion Gap 12.4 12.8 Blood Urea Nitrogen 5 mg/dL 7 mg/dL Creatinine 0.90 mg/dL 0.71 mg/dL Estimated GFR () 79.6 104.6 BUN/Creatinine Ratio 5.0 9.0 Glucose Level 95 mg/dL 115 mg/dL Calcium Level 9.3 mg/dL 8.7 mg/dL Total Bilirubin 0.6 mg/dL 0.4 mg/dL Aspartate Amino Transf (AST/SGOT) 19 U/L 24 U/L Alanine Aminotransferase (ALT/SGPT) 23 U/L 24 U/L Alkaline Phosphatase 88 U/L 69 U/L Total Creatine Kinase 36 U/L Troponin I < 0.02 ng/mL C-Reactive Protein 11.89 mg/dL Pro-B-Type Natriuretic Peptide 260 pg/mL Total Protein 7.6 g/dL 6.4 g/dL Albumin 3.3 g/dL 2.7 g/dL Globulin 4.3 3.7 Urine Opiates, Qualitative NEGATIVE ng/mL Urine Methadone, Qualitative NEGATIVE ng/mL Urine Amphetamine Qualitative NEGATIVE ng/mL Urine Barbiturates, Qualitative NEGATIVE ng/mL Urine Phencyclidine Screen NEGATIVE ng/mL Urine MDMA (Ecstasy), Qualitative NEGATIVE ng/mL Urine Benzodiazepines Screen POSITIVE ng/mL Urine Cocaine Qualitative NEGATIVE ng/mL Ur Tetrahydrocannabinol (THC) Scrn NEGATIVE ng/mL Helicobacter pylori Screen POSITIVE HIV-1 Antibody NON-REACTIVE HIV-2 Antibody NON-REACTIVE Influenza Type A Antigen NEGATIVE Influenza B Immunofluorescence NEGATIVE Urine Collection Type VOID Urine Color YELLOW Urine Appearance CLEAR Urine Bilirubin NEGATIVE MG/DL Urine Ketones NEGATIVE Urine Specific [place] 1.005 Urine pH 6 Urine Protein NEGATIVE Urine Urobilinogen NORMAL Urine Nitrate NEGATIVE Urine Leukocyte Esterase NEGATIVE Urine Blood NEGATIVE Urine Glucose NORMAL Current Medications Medications (Trade) Dose Ordered Sig/[place] Route PRN Reason Start Time Stop Time Status Last Admin Dose Admin Hydromorphone HCl (Dilaudid) 2 mg STAT STAT IM 04/21/19 10:44 04/21/19 10:47 DC 04/21/19 11:26 Ibuprofen (Motrin) 800 mg STAT STAT PO 04/21/19 10:44 04/21/19 10:47 DC 04/21/19 11:27 Prednisone (Prednisone) 40 mg STAT STAT PO 04/21/19 10:44 04/21/19 10:47 DC 04/21/19 11:27 Lorazepam (Ativan) 2 mg STAT STAT PO 04/21/19 10:47 04/21/19 10:48 DC Lorazepam (Ativan) 1 mg STK-MED ONCE .ROUTE 04/21/19 11:07 04/21/19 11:09 DC Ibuprofen (Motrin) 800 mg STK-MED ONCE .ROUTE 04/21/19 11:08 04/21/19 11:09 DC Prednisone (Prednisone) 20 mg STK-MED ONCE .ROUTE 04/21/19 11:09 04/21/19 11:10 DC Hydromorphone HCl (Dilaudid) 2 mg STK-MED ONCE .ROUTE 04/21/19 11:09 04/21/19 11:10 DC Albuterol/ Ipratropium (Duoneb 0.5 Mg-3 Mg/3 ml Soln) 3 ml STAT STAT IH 04/21/19 11:29 04/21/19 13:47 DC 04/21/19 12:34 Dexamethasone Sodium Phosphate (Decadron) 4 mg STAT STAT IH 04/21/19 11:29 04/21/19 13:47 DC 04/21/19 12:34 Sodium Chloride 1,000 ml @ 100 mls/hr Q10H IV 04/21/19 12:00 05/21/19 11:59 04/21/19 22:00 Piperacillin/ Tazobactam/ Dextrose (Zosyn 3.375 Gm/ 50 ml) 3.375 gm Q6 IV 04/21/19 12:00 04/21/19 18:04 DC 04/21/19 16:42 Vancomycin HCl 1 gm/Sodium Chloride 250 ml @ 175 mls/hr Q12HR IV 04/21/19 21:00 04/21/19 21:00 DC 04/21/19 12:47 Albuterol/ Ipratropium (Duoneb 0.5 Mg-3 Mg/3 ml Soln) 3 ml Q6HR IH 04/21/19 12:00 04/21/19 12:15 DC Albuterol/ Ipratropium (Duoneb 0.5 Mg-3 Mg/3 ml Soln) 3 ml RTQ6 IH 04/21/19 21:00 04/21/19 21:00 DC Sodium Chloride 250 ml @ STK-MED ONCE IV 04/21/19 12:27 04/21/19 12:28 DC Vancomycin HCl 1 ml @ STK-MED ONCE .ROUTE 04/21/19 12:27 04/21/19 12:28 DC Azithromycin 500 mg/Sodium Chloride 250 ml @ 175 mls/hr Q24HRS IV 04/21/19 13:30 05/21/19 13:29 04/21/19 15:03 Ondansetron HCl (Zofran) 4 mg Q4H PRN IV NAUSEA / VOMITING 04/21/19 13:30 05/21/19 13:29 04/21/19 15:03 Pantoprazole Sodium (Protonix) 40 mg DAILY PO 04/22/19 09:00 05/22/19 08:59 04/22/19 09:15 Enoxaparin Sodium (Lovenox) 40 mg Q24HRS SQ 04/21/19 13:30 05/21/19 13:29 04/21/19 15:08 Fluconazole (Diflucan) 150 mg OT ONCE PO 04/21/19 13:30 04/21/19 13:47 DC 04/21/19 15:46 Baclofen (Lioresal) 10 mg QID PO 04/21/19 17:00 04/21/19 17:00 DC Morphine Sulfate (Duramorph) 2 mg Q4H PRN IV PAIN 04/21/19 14:00 04/22/19 09:19 DC 04/21/19 15:03 Baclofen (Lioresal) 10 mg QID PRN PO MUSCLE SPASM 04/21/19 17:00 05/21/19 16:59 Levothyroxine Sodium (Synthroid) 50 mcg ACB PO 04/22/19 06:30 05/22/19 06:29 04/22/19 06:13 Losartan Potassium (Cozaar) 50 mg DAILY PO 04/22/19 09:00 05/22/19 08:59 04/22/19 09:15 Metoprolol Succinate (Toprol Xl) 50 mg DAILY PO 04/22/19 09:00 05/22/19 08:59 04/22/19 09:15 Metoprolol Succinate (Toprol Xl) 50 mg STAT STAT PO 04/21/19 15:35 04/21/19 20:44 DC 04/21/19 15:46 Fluconazole (Diflucan) 100 mg STK-MED ONCE .ROUTE 04/21/19 15:40 04/21/19 15:42 DC Albuterol/ Ipratropium (Duoneb 0.5 Mg-3 Mg/3 ml Soln) 3 ml RTQ6 PRN IH WHEEZING 04/21/19 21:00 05/24/19 11:59 04/22/19 08:27 Piperacillin/ Tazobactam/ Dextrose (Zosyn 3.375 Gm/ 50 ml) 3.375 gm Q6 IV 04/21/19 00:00 04/22/19 03:04 DC 04/21/19 00:00 Sodium Chloride 100 ml @ ud STK-MED ONCE IV 04/21/19 23:46 04/21/19 23:48 DC Piperacillin Sod/ Tazobactam Sod (Zosyn 3.375 Gram Vial) 3.375 gm STK-MED ONCE IV 04/21/19 23:47 04/21/19 23:48 DC Piperacillin Sod/ Tazobactam Sod 3.375 gm/Sodium Chloride 50 ml @ 100 mls/hr Q6H IV 04/22/19 06:00 05/22/19 06:00 04/22/19 06:00 Sodium Chloride 100 ml @ ud STK-MED ONCE IV 04/22/19 05:16 04/22/19 05:17 DC Piperacillin Sod/ Tazobactam Sod (Zosyn 3.375 Gram Vial) 3.375 gm STK-MED ONCE IV 04/22/19 05:16 04/22/19 05:18 DC Acetaminophen (Tylenol) 650 mg Q4H PRN PO PAIN 1 - 3 04/22/19 06:30 05/22/19 06:29 04/22/19 06:26 Morphine Sulfate (Morphine Sulfate) 2 mg Q4H PRN IV PAIN 04/22/19 09:30 05/21/19 13:59 Course Sepsis Screening Results: Posi: NEGATIVE Sepsis Qualifier/Stage: NO DEFINITE RISK Duration or Total Time Spent w: 1 hr Vitals & review Data Vital Sign - Last 24 Hours 04/21/19 04/21/19 04/21/19 04/21/19 10:24 10:24 10:47 11:47 Temp 98.8 98.8 98.8 98.8 Pulse 125 127 125 117 Resp 17 17 17 B/P (MAP) 145/98 (114) 135/84 (101) Pulse Ox 97 97 O2 Delivery Room Air Room Air Laboratory Tests Test 04/21/19 11:15 04/21/19 11:17 04/21/19 11:19 White Blood Count 8.9 10^3/uL Red Blood Count 3.62 10^6/uL Hemoglobin 13.0 g/dL Hematocrit 37.5 % Mean Corpuscular Volume 103.6 fL Mean Corpuscular Hemoglobin 35.9 pg Mean Corpuscular Hemoglobin Concent 34.7 g/dL Red Cell Distribution Width 12.1 % Platelet Count 329 10^3/uL Mean Platelet Volume 9.1 fL Neutrophils (%) (Auto) 84.0 % Lymphocytes (%) (Auto) 8.9 % Monocytes (%) (Auto) 3.8 % Neutrophils # (Auto) 7.5 10^3/uL Lymphocytes # (Auto) 0.8 10^3/uL Monocytes # (Auto) 0.3 10^3/uL Absolute Immature Granulocyte (auto 0.03 10^3 u/L Immature Granulocytes % 0.30 % Eosinophils % 2.7 % Basophils % 0.3 % Basophils # 0.0 10^3/uL Erythrocyte Sedimentation Rate 56 mm/hr Eosinophil Count 0.2 10^3/uL Prothrombin Time 9.9 SEC Prothrombin Time INR (Non-Therap) 1.0 Activated Partial Thromboplast Time 24.5 SEC D-Dimer 1.20 mg/L Sodium Level 139 mmol/L Potassium Level 4.2 mmol/L Chloride Level 105.0 mmol/L Carbon Dioxide Level 25.8 mmol/L Anion Gap 12.4 Blood Urea Nitrogen 5 mg/dL Creatinine 0.90 mg/dL Estimated GFR () 79.6 BUN/Creatinine Ratio 5.0 Glucose Level 95 mg/dL Calcium Level 9.3 mg/dL Total Bilirubin 0.6 mg/dL Aspartate Amino Transf (AST/SGOT) 19 U/L Alanine Aminotransferase (ALT/SGPT) 23 U/L Alkaline Phosphatase 88 U/L Total Creatine Kinase 36 U/L Troponin I < 0.02 ng/mL C-Reactive Protein 11.89 mg/dL Pro-B-Type Natriuretic Peptide 260 pg/mL Total Protein 7.6 g/dL Albumin 3.3 g/dL Globulin 4.3 Urine Opiates, Qualitative NEGATIVE ng/mL Urine Methadone, Qualitative NEGATIVE ng/mL Urine Amphetamine Qualitative NEGATIVE ng/mL Urine Barbiturates, Qualitative NEGATIVE ng/mL Urine Phencyclidine Screen NEGATIVE ng/mL Urine MDMA (Ecstasy), Qualitative NEGATIVE ng/mL Urine Benzodiazepines Screen POSITIVE ng/mL Urine Cocaine Qualitative NEGATIVE ng/mL Ur Tetrahydrocannabinol (THC) Scrn NEGATIVE ng/mL Helicobacter pylori Screen POSITIVE HIV-1 Antibody NON-REACTIVE HIV-2 Antibody NON-REACTIVE Influenza Type A Antigen NEGATIVE Influenza B Immunofluorescence NEGATIVE Urine Collection Type VOID Urine Color YELLOW Urine Appearance CLEAR Urine Bilirubin NEGATIVE MG/DL Urine Ketones NEGATIVE Urine Specific [place] 1.005 Urine pH 6 Urine Protein NEGATIVE Urine Urobilinogen NORMAL Urine Nitrate NEGATIVE Urine Leukocyte Esterase NEGATIVE Urine Blood NEGATIVE Urine Glucose NORMAL Sepsis Infection Criteria Pres: Documented Infection LEVEL 1 SEPSIS INFECTION CRITE: ABX Therapy, Flu-Pneumonia LEVEL 2-SIRS (LIST ALL THAT AP: None/Not assessed Cardiovascular Evidence: Not Assessed or None Hematologic Evidence: None/Not assessed Hepatic Evidence: None/Not assessed Metabolic Evidence: None/Not assessed Neurological Evidence: None/Not assessed Respiratory Evidence: None/Not assessed Renal Evidence: None/Not assessed O2 Sat by Pulse Oximetry: 99 Assessment/Plan Assessment/Plan Assessment/Plan 1. Community Acquired Pneumonia: failed outpatient therapy. Cont IV abx (Zosyn, Azithromycin). CTA reviewed, possible aspiration. 2. Tachycardia/Elevated D-Dimer: No PE, monitor. Sinus rhythm. 3. HTN: cont BB/ARB 4. Yeast Infection: Repeat Diflucan 5. Muscle spasms: Baclofen PRN, Morphine PRN. 6. Hypothyroidism: cont synthroid 7. PPx: PPI, Lovenox MADDY BERGMAN MD Apr 22, 2019 10:04
--- NOTE | 2019-04-22 11:42 | NUR ---
DISCHARGE PLANNING: SW VISITED WITH PT REGARDING DISCHARGE PLANNING. PT LIVES HOME WITH SPOUSE. PT IS INDEPENDENT AND DOES NOT USE ANY DME TO ASSIST WITH AMBULATION. PT DENIED NEEDING ADDITIONAL RESOURCES AT THIS TIME. PT STATED COST OF MEDICATION WOULD NOT BE AN ISSUE. NO FURTHER CM NEEDS NOTED OR IDENTIFIED AT THIS TIME. GOAL IS TO RETURN HOME WITH SPOUSE. CM/SS TO CONTINUE TO FOLLOW PT'S POC.
[2019-04-22] MEDS ORDERED: DIFLUCAN ONE (12:33)
[2019-04-22] MEDS: MORPHINE SULFATE IV PRN ×3 (12:58→23:07)
[2019-04-22 12:59] VITALS: BP 136/97
[2019-04-22] MEDS: ZITHROMAX 500 MG in NS 250ML 250 ML IV SCH ×2 (13:00→14:00)
[2019-04-22] MEDS: LOVENOX SQ SCH ×2 (13:00→14:00)
[2019-04-22] MEDS ORDERED: SUMA100T3 PO (13:53)
[2019-04-22] MEDS ORDERED: IMITREX PO ONE (14:07)
[2019-04-22] MEDS ORDERED: IMITREX PO STA (14:31)
[2019-04-22] MEDS: LIORESAL PO PRN ×2 (18:00→23:45)
[2019-04-22] MEDS ORDERED: MORPHINE SULFATE ONE (19:06)
[2019-04-22] MEDS ORDERED: NS 250ML 250 ML IV ONE (19:12)
[2019-04-22 20:08] VITALS: BP 134/96
[2019-04-23] MEDS: ZOSYN IV SCH ×5 (00:23→23:40)
[2019-04-23] MEDS: NS IV SCH ×5 (00:23→23:40)
[2019-04-23 00:27] VITALS: BP 144/105
[2019-04-23] MEDS: TYLENOL PO PRN (00:53)
[2019-04-23 04:11] VITALS: BP 140/99
[2019-04-23] MEDS: DUONEB 0.5 MG-3 MG/3 ML SOLN IH PRN ×4 (04:11→22:15)
[2019-04-23 05:35] LABS: BASOPHIL % 0.6 % (0.0-0.2); CALCIUM 8.8 mg/dL (8.4-10.5); CARBON DIOXIDE 24.4 mmol/L (20.0-32); EOSINOPHIL # 0.2 10^3/uL (0.0-0.2); EOSINOPHIL % 3.1 % (0.0-5.0); HEMOGLOBIN 10.7 g/dL (12.0-15.0); LYMPHOCYTES # 2.4 10^3/uL (1.0-4.8); LYMPHOCYTES % 36.5 % (24.0-44.0); MEAN CELL HGB 35.7 pg (26-34); MEAN PLATELET VOLUME 9.4 fL (7.8-11.0); MONOCYTES # 0.5 10^3/uL (0.3-0.8); MONOCYTES % 7.3 % (5.0-12.0); NEUTROPHIL # 3.4 10^3/uL (1.8-7.7); NEUTROPHILS % 51.9 % (41.0-85.0); WHITE BLOOD CELL 6.5 10^3/uL (4.5-11.0)
[2019-04-23] MEDS: SYNTHROID PO SCH (05:41)
[2019-04-23] MEDS: MORPHINE SULFATE IV PRN (05:47)
[2019-04-23 08:47] VITALS: BP 140/97
[2019-04-23] MEDS ORDERED: TORADOL ONE ×2 (09:16→16:18)
[2019-04-23] MEDS ORDERED: TORADOL IV STA ×2 (09:18→09:41)
[2019-04-23] MEDS: COZAAR PO SCH (09:26)
[2019-04-23] MEDS: TOPROL XL PO SCH (09:26)
[2019-04-23] MEDS: PROTONIX PO SCH (09:26)
[2019-04-23] MEDS ORDERED: IMITREX PO STA (09:31)
[2019-04-23] MEDS ORDERED: IMITREX PO ONE (09:31)
--- NOTE | 2019-04-23 09:52 | PRM.PN ---
Subjective Subjective Date: Apr 23, 2019 Time: 09:45 Subjective Patient still having bad pain from muscle spasms and migraine. Labs, imaging reviewed. Patient feeling worse today. VTE VTE Risk Total Score: 1 VTE Risk Score VTE Risk: Score 0-1 = Low Risk (Aggressive mobilization; early ambulation; no VTE prophylaxis required) Score 2: Moderate Risk (Intermittent/Pneumatic Compression Device OR Lovenox/Heparin/Coumadin) Score 3-4: High Risk (Intermittent/Pneumatic Compression Device AND Lovenox/Heparin/Coumadin) Score > or =5: Highest Risk (Intermittent/Pneumatic Compression Device AND Lovenox/Heparin/Coumadin) Review of Systems Allergies: Coded Allergies: No Known Allergies (Unverified , 04/21/19) Scheduled Levothyroxine Sodium (Levothyroxine Sodium), 1 TAB PO DAILY, (Reported) Losartan Potassium (Losartan Potassium), 1 TAB PO DAILY, (Reported) Metoprolol Succinate (Metoprolol Succinate), 1 TAB PO DAILY, (Reported) Sumatriptan Succinate (Imitrex), 100 MG PO DAILY24, (Reported) Objective Vitals and I/O Vital Sign - Last 24 Hours 04/21/19 04/21/19 04/21/19 04/21/19 10:24 10:24 10:47 11:47 Temp 98.8 98.8 98.8 98.8 Pulse 125 127 125 117 Resp 17 17 17 B/P (MAP) 145/98 (114) 135/84 (101) Pulse Ox 97 97 O2 Delivery Room Air Room Air 04/21/19 04/21/19 04/21/19 04/21/19 12:12 12:36 12:38 12:47 Pulse 115 117 115 Resp 22 22 22 B/P (MAP) 138/87 (104) Pulse Ox 94 94 94 99 04/21/19 04/21/19 04/21/19 04/21/19 14:18 15:28 15:31 15:46 Pulse 122 122 Resp 18 B/P (MAP) 154/54 (87) 154/54 O2 Delivery Room Air Room Air Room Air 04/21/19 04/21/19 04/21/19 04/21/19 16:41 20:00 20:15 21:36 Temp 97.7 97.7 Pulse 101 87 87 Resp 18 18 B/P (MAP) 121/82 (95) Pulse Ox 95 94 O2 Delivery Room Air Room Air 04/21/19 04/22/19 04/22/19 04/22/19 21:50 00:10 05:00 08:01 Temp 97.5 97.6 97.8 97.5 97.6 97.8 Pulse 73 82 82 76 Resp 18 18 18 18 B/P (MAP) 131/99 (110) 130/93 (105) 137/94 (108) Pulse Ox 99 95 97 99 O2 Delivery Room Air Room Air 04/22/19 04/22/19 04/22/19 04/22/19 08:27 08:35 09:15 09:15 Pulse 90 90 90 Resp 18 18 B/P (MAP) 137/94 137/94 Pulse Ox 98 99 Intake and Output 04/21/19 04/21/19 04/22/19 15:00 23:00 07:00 Intake Total 120 ml 300 ml Output Total 400 ml Balance -280 ml 300 ml General: Alert, Oriented X3, Cooperative, No acute distress HEENT: Atraumatic, PERRLA, EOMI, Mucous membr. moist/pink Neck: Supple, No JVD Lungs: Clear to auscultation, Normal air movement Heart: Normal S1, Normal S2, No murmurs Abdomen: Normal bowel sounds, Soft, No tenderness Extremities: No edema, Normal pulses, No tenderness/swelling Skin: No rashes, No breakdown, No significant lesion Neuro: Normal speech, Strength at 5/5 X4 ext, Normal tone, Sensation intact, Cranial nerves 3-12 NL Psych/Mental Status: Mental status NL, Mood NL All Results(Lab/Rad) Laboratory Tests Test 04/21/19 11:15 04/21/19 11:17 04/21/19 11:19 04/22/19 05:11 White Blood Count 8.9 10^3/uL 7.1 10^3/uL Red Blood Count 3.62 10^6/uL 3.11 10^6/uL Hemoglobin 13.0 g/dL 11.2 g/dL Hematocrit 37.5 % 32.3 % Mean Corpuscular Volume 103.6 fL 103.9 fL Mean Corpuscular Hemoglobin 35.9 pg 36.0 pg Mean Corpuscular Hemoglobin Concent 34.7 g/dL 34.7 g/dL Red Cell Distribution Width 12.1 % 11.7 % Platelet Count 329 10^3/uL 332 10^3/uL Mean Platelet Volume 9.1 fL 9.2 fL Neutrophils (%) (Auto) 84.0 % 83.7 % Lymphocytes (%) (Auto) 8.9 % 10.2 % Monocytes (%) (Auto) 3.8 % 5.4 % Neutrophils # (Auto) 7.5 10^3/uL 5.9 10^3/uL Lymphocytes # (Auto) 0.8 10^3/uL 0.7 10^3/uL Monocytes # (Auto) 0.3 10^3/uL 0.4 10^3/uL Absolute Immature Granulocyte (auto 0.03 10^3 u/L 0.04 10^3 u/L Immature Granulocytes % 0.30 % 0.60 % Eosinophils % 2.7 % 0.1 % Basophils % 0.3 % 0.0 % Basophils # 0.0 10^3/uL 0.0 10^3/uL Erythrocyte Sedimentation Rate 56 mm/hr Eosinophil Count 0.2 10^3/uL 0.0 10^3/uL Prothrombin Time 9.9 SEC Prothrombin Time INR (Non-Therap) 1.0 Activated Partial Thromboplast Time 24.5 SEC D-Dimer 1.20 mg/L Sodium Level 139 mmol/L 143 mmol/L Potassium Level 4.2 mmol/L 4.2 mmol/L Chloride Level 105.0 mmol/L 111.0 mmol/L Carbon Dioxide Level 25.8 mmol/L 23.4 mmol/L Anion Gap 12.4 12.8 Blood Urea Nitrogen 5 mg/dL 7 mg/dL Creatinine 0.90 mg/dL 0.71 mg/dL Estimated GFR () 79.6 104.6 BUN/Creatinine Ratio 5.0 9.0 Glucose Level 95 mg/dL 115 mg/dL Calcium Level 9.3 mg/dL 8.7 mg/dL Total Bilirubin 0.6 mg/dL 0.4 mg/dL Aspartate Amino Transf (AST/SGOT) 19 U/L 24 U/L Alanine Aminotransferase (ALT/SGPT) 23 U/L 24 U/L Alkaline Phosphatase 88 U/L 69 U/L Total Creatine Kinase 36 U/L Troponin I < 0.02 ng/mL C-Reactive Protein 11.89 mg/dL Pro-B-Type Natriuretic Peptide 260 pg/mL Total Protein 7.6 g/dL 6.4 g/dL Albumin 3.3 g/dL 2.7 g/dL Globulin 4.3 3.7 Urine Opiates, Qualitative NEGATIVE ng/mL Urine Methadone, Qualitative NEGATIVE ng/mL Urine Amphetamine Qualitative NEGATIVE ng/mL Urine Barbiturates, Qualitative NEGATIVE ng/mL Urine Phencyclidine Screen NEGATIVE ng/mL Urine MDMA (Ecstasy), Qualitative NEGATIVE ng/mL Urine Benzodiazepines Screen POSITIVE ng/mL Urine Cocaine Qualitative NEGATIVE ng/mL Ur Tetrahydrocannabinol (THC) Scrn NEGATIVE ng/mL Helicobacter pylori Screen POSITIVE HIV-1 Antibody NON-REACTIVE HIV-2 Antibody NON-REACTIVE Influenza Type A Antigen NEGATIVE Influenza B Immunofluorescence NEGATIVE Urine Collection Type VOID Urine Color YELLOW Urine Appearance CLEAR Urine Bilirubin NEGATIVE MG/DL Urine Ketones NEGATIVE Urine Specific [place] 1.005 Urine pH 6 Urine Protein NEGATIVE Urine Urobilinogen NORMAL Urine Nitrate NEGATIVE Urine Leukocyte Esterase NEGATIVE Urine Blood NEGATIVE Urine Glucose NORMAL Current Medications Medications (Trade) Dose Ordered Sig/[place] Route PRN Reason Start Time Stop Time Status Last Admin Dose Admin Hydromorphone HCl (Dilaudid) 2 mg STAT STAT IM 04/21/19 10:44 04/21/19 10:47 DC 04/21/19 11:26 Ibuprofen (Motrin) 800 mg STAT STAT PO 04/21/19 10:44 04/21/19 10:47 DC 04/21/19 11:27 Prednisone (Prednisone) 40 mg STAT STAT PO 04/21/19 10:44 04/21/19 10:47 DC 04/21/19 11:27 Lorazepam (Ativan) 2 mg STAT STAT PO 04/21/19 10:47 04/21/19 10:48 DC Lorazepam (Ativan) 1 mg STK-MED ONCE .ROUTE 04/21/19 11:07 04/21/19 11:09 DC Ibuprofen (Motrin) 800 mg STK-MED ONCE .ROUTE 04/21/19 11:08 04/21/19 11:09 DC Prednisone (Prednisone) 20 mg STK-MED ONCE .ROUTE 04/21/19 11:09 04/21/19 11:10 DC Hydromorphone HCl (Dilaudid) 2 mg STK-MED ONCE .ROUTE 04/21/19 11:09 04/21/19 11:10 DC Albuterol/ Ipratropium (Duoneb 0.5 Mg-3 Mg/3 ml Soln) 3 ml STAT STAT IH 04/21/19 11:29 04/21/19 13:47 DC 04/21/19 12:34 Dexamethasone Sodium Phosphate (Decadron) 4 mg STAT STAT IH 04/21/19 11:29 04/21/19 13:47 DC 04/21/19 12:34 Sodium Chloride 1,000 ml @ 100 mls/hr Q10H IV 04/21/19 12:00 05/21/19 11:59 04/21/19 22:00 Piperacillin/ Tazobactam/ Dextrose (Zosyn 3.375 Gm/ 50 ml) 3.375 gm Q6 IV 04/21/19 12:00 04/21/19 18:04 DC 04/21/19 16:42 Vancomycin HCl 1 gm/Sodium Chloride 250 ml @ 175 mls/hr Q12HR IV 04/21/19 21:00 04/21/19 21:00 DC 04/21/19 12:47 Albuterol/ Ipratropium (Duoneb 0.5 Mg-3 Mg/3 ml Soln) 3 ml Q6HR IH 04/21/19 12:00 04/21/19 12:15 DC Albuterol/ Ipratropium (Duoneb 0.5 Mg-3 Mg/3 ml Soln) 3 ml RTQ6 IH 04/21/19 21:00 04/21/19 21:00 DC Sodium Chloride 250 ml @ STK-MED ONCE IV 04/21/19 12:27 04/21/19 12:28 DC Vancomycin HCl 1 ml @ STK-MED ONCE .ROUTE 04/21/19 12:27 04/21/19 12:28 DC Azithromycin 500 mg/Sodium Chloride 250 ml @ 175 mls/hr Q24HRS IV 04/21/19 13:30 05/21/19 13:29 04/21/19 15:03 Ondansetron HCl (Zofran) 4 mg Q4H PRN IV NAUSEA / VOMITING 04/21/19 13:30 05/21/19 13:29 04/21/19 15:03 Pantoprazole Sodium (Protonix) 40 mg DAILY PO 04/22/19 09:00 05/22/19 08:59 04/22/19 09:15 Enoxaparin Sodium (Lovenox) 40 mg Q24HRS SQ 04/21/19 13:30 05/21/19 13:29 04/21/19 15:08 Fluconazole (Diflucan) 150 mg OT ONCE PO 04/21/19 13:30 04/21/19 13:47 DC 04/21/19 15:46 Baclofen (Lioresal) 10 mg QID PO 04/21/19 17:00 04/21/19 17:00 DC Morphine Sulfate (Duramorph) 2 mg Q4H PRN IV PAIN 04/21/19 14:00 04/22/19 09:19 DC 04/21/19 15:03 Baclofen (Lioresal) 10 mg QID PRN PO MUSCLE SPASM 04/21/19 17:00 05/21/19 16:59 Levothyroxine Sodium (Synthroid) 50 mcg ACB PO 04/22/19 06:30 05/22/19 06:29 04/22/19 06:13 Losartan Potassium (Cozaar) 50 mg DAILY PO 04/22/19 09:00 05/22/19 08:59 04/22/19 09:15 Metoprolol Succinate (Toprol Xl) 50 mg DAILY PO 04/22/19 09:00 05/22/19 08:59 04/22/19 09:15 Metoprolol Succinate (Toprol Xl) 50 mg STAT STAT PO 04/21/19 15:35 04/21/19 20:44 DC 04/21/19 15:46 Fluconazole (Diflucan) 100 mg STK-MED ONCE .ROUTE 04/21/19 15:40 04/21/19 15:42 DC Albuterol/ Ipratropium (Duoneb 0.5 Mg-3 Mg/3 ml Soln) 3 ml RTQ6 PRN IH WHEEZING 04/21/19 21:00 05/24/19 11:59 04/22/19 08:27 Piperacillin/ Tazobactam/ Dextrose (Zosyn 3.375 Gm/ 50 ml) 3.375 gm Q6 IV 04/21/19 00:00 04/22/19 03:04 DC 04/21/19 00:00 Sodium Chloride 100 ml @ STK-MED ONCE IV 04/21/19 23:46 04/21/19 23:48 DC Piperacillin Sod/ Tazobactam Sod (Zosyn 3.375 Gram Vial) 3.375 gm STK-MED ONCE IV 04/21/19 23:47 04/21/19 23:48 DC Piperacillin Sod/ Tazobactam Sod 3.375 gm/Sodium Chloride 50 ml @ 100 mls/hr Q6H IV 04/22/19 06:00 05/22/19 06:00 04/22/19 06:00 Sodium Chloride 100 ml @ ud STK-MED ONCE IV 04/22/19 05:16 04/22/19 05:17 DC Piperacillin Sod/ Tazobactam Sod (Zosyn 3.375 Gram Vial) 3.375 gm STK-MED ONCE IV 04/22/19 05:16 04/22/19 05:18 DC Acetaminophen (Tylenol) 650 mg Q4H PRN PO PAIN 1 - 3 04/22/19 06:30 05/22/19 06:29 04/22/19 06:26 Morphine Sulfate (Morphine Sulfate) 2 mg Q4H PRN IV PAIN 04/22/19 09:30 05/21/19 13:59 Course Sepsis Screening Results: Posi: NEGATIVE Sepsis Qualifier/Stage: NO DEFINITE RISK Duration or Total Time Spent w: 1 hr Vitals & review Data Vital Sign - Last 24 Hours 04/21/19 04/21/19 04/21/19 04/21/19 10:24 10:24 10:47 11:47 Temp 98.8 98.8 98.8 98.8 Pulse 125 127 125 117 Resp 17 17 17 B/P (MAP) 145/98 (114) 135/84 (101) Pulse Ox 97 97 O2 Delivery Room Air Room Air Laboratory Tests Test 04/21/19 11:15 04/21/19 11:17 04/21/19 11:19 White Blood Count 8.9 10^3/uL Red Blood Count 3.62 10^6/uL Hemoglobin 13.0 g/dL Hematocrit 37.5 % Mean Corpuscular Volume 103.6 fL Mean Corpuscular Hemoglobin 35.9 pg Mean Corpuscular Hemoglobin Concent 34.7 g/dL Red Cell Distribution Width 12.1 % Platelet Count 329 10^3/uL Mean Platelet Volume 9.1 fL Neutrophils (%) (Auto) 84.0 % Lymphocytes (%) (Auto) 8.9 % Monocytes (%) (Auto) 3.8 % Neutrophils # (Auto) 7.5 10^3/uL Lymphocytes # (Auto) 0.8 10^3/uL Monocytes # (Auto) 0.3 10^3/uL Absolute Immature Granulocyte (auto 0.03 10^3 u/L Immature Granulocytes % 0.30 % Eosinophils % 2.7 % Basophils % 0.3 % Basophils # 0.0 10^3/uL Erythrocyte Sedimentation Rate 56 mm/hr Eosinophil Count 0.2 10^3/uL Prothrombin Time 9.9 SEC Prothrombin Time INR (Non-Therap) 1.0 Activated Partial Thromboplast Time 24.5 SEC D-Dimer 1.20 mg/L Sodium Level 139 mmol/L Potassium Level 4.2 mmol/L Chloride Level 105.0 mmol/L Carbon Dioxide Level 25.8 mmol/L Anion Gap 12.4 Blood Urea Nitrogen 5 mg/dL Creatinine 0.90 mg/dL Estimated GFR () 79.6 BUN/Creatinine Ratio 5.0 Glucose Level 95 mg/dL Calcium Level 9.3 mg/dL Total Bilirubin 0.6 mg/dL Aspartate Amino Transf (AST/SGOT) 19 U/L Alanine Aminotransferase (ALT/SGPT) 23 U/L Alkaline Phosphatase 88 U/L Total Creatine Kinase 36 U/L Troponin I < 0.02 ng/mL C-Reactive Protein 11.89 mg/dL Pro-B-Type Natriuretic Peptide 260 pg/mL Total Protein 7.6 g/dL Albumin 3.3 g/dL Globulin 4.3 Urine Opiates, Qualitative NEGATIVE ng/mL Urine Methadone, Qualitative NEGATIVE ng/mL Urine Amphetamine Qualitative NEGATIVE ng/mL Urine Barbiturates, Qualitative NEGATIVE ng/mL Urine Phencyclidine Screen NEGATIVE ng/mL Urine MDMA (Ecstasy), Qualitative NEGATIVE ng/mL Urine Benzodiazepines Screen POSITIVE ng/mL Urine Cocaine Qualitative NEGATIVE ng/mL Ur Tetrahydrocannabinol (THC) Scrn NEGATIVE ng/mL Helicobacter pylori Screen POSITIVE HIV-1 Antibody NON-REACTIVE HIV-2 Antibody NON-REACTIVE Influenza Type A Antigen NEGATIVE Influenza B Immunofluorescence NEGATIVE Urine Collection Type VOID Urine Color YELLOW Urine Appearance CLEAR Urine Bilirubin NEGATIVE MG/DL Urine Ketones NEGATIVE Urine Specific [place] 1.005 Urine pH 6 Urine Protein NEGATIVE Urine Urobilinogen NORMAL Urine Nitrate NEGATIVE Urine Leukocyte Esterase NEGATIVE Urine Blood NEGATIVE Urine Glucose NORMAL Sepsis Infection Criteria Pres: Documented Infection LEVEL 1 SEPSIS INFECTION CRITE: ABX Therapy, Flu-Pneumonia LEVEL 2-SIRS (LIST ALL THAT AP: None/Not assessed Cardiovascular Evidence: Not Assessed or None Hematologic Evidence: None/Not assessed Hepatic Evidence: None/Not assessed Metabolic Evidence: None/Not assessed Neurological Evidence: None/Not assessed Respiratory Evidence: None/Not assessed Renal Evidence: None/Not assessed O2 Sat by Pulse Oximetry: 99 Assessment/Plan Assessment/Plan Assessment/Plan 1. Community Acquired Pneumonia: failed outpatient therapy. Cont IV abx (Zosyn, Azithromycin). 2. Tachycardia/Elevated D-Dimer: No PE, monitor. Sinus rhythm. Tachycardia only with nebs. 3. HTN: cont BB/ARB 4. Yeast Infection: resolved. 5. Muscle spasms: Baclofen PRN, Morphine PRN. Attempt Toradol this AM. 6. Hypothyroidism: cont synthroid 7. PPx: PPI, Lovenox MADDY BERGMAN MD Apr 23, 2019 09:52
[2019-04-23] MEDS: HNS 1000ML/KCL 20MEQ 1,000 ML IV SCH ×2 (11:30→23:40)
[2019-04-23 13:14] VITALS: BP 143/95
[2019-04-23] MEDS: LOVENOX SQ SCH (14:00)
[2019-04-23] MEDS: ZITHROMAX 500 MG in NS 250ML 250 ML IV SCH (14:00)
[2019-04-23 16:59] VITALS: BP 153/109
[2019-04-23 19:30] VITALS: BP 140/101
[2019-04-23] MEDS: TORADOL IV PRN (19:43)
[2019-04-23] MEDS: LIORESAL PO PRN (19:43)
[2019-04-24] MEDS: TORADOL IV PRN ×2 (03:06→09:44)
[2019-04-24] MEDS: DUONEB 0.5 MG-3 MG/3 ML SOLN IH PRN ×2 (03:06→08:44)
[2019-04-24 03:08] VITALS: BP 148/108
[2019-04-24] MEDS ORDERED: IMITREX PO STA (05:09)
[2019-04-24] MEDS ORDERED: IMITREX PO ONE ×2 (05:14→05:16)
[2019-04-24] MEDS: NS IV SCH ×2 (05:18→12:00)
[2019-04-24] MEDS: ZOSYN IV SCH ×2 (05:18→12:00)
[2019-04-24] MEDS: SYNTHROID PO SCH (05:19)
[2019-04-24 05:22] LABS: BASOPHIL % 0.7 % (0.0-0.2); EOSINOPHIL # 0.4 10^3/uL (0.0-0.2); EOSINOPHIL % 6.6 % (0.0-5.0); LYMPHOCYTES # 1.7 10^3/uL (1.0-4.8); LYMPHOCYTES % 28.4 % (24.0-44.0); MEAN CELL HGB 34.8 pg (26-34); MEAN CELL HGB CONCENTRATION 33.7 g/dL (33-37); MEAN CORP VOLUME 103.2 fL (78-100); MEAN PLATELET VOLUME 9.1 fL (7.8-11.0); MONOCYTES # 0.6 10^3/uL (0.3-0.8); MONOCYTES % 10.5 % (5.0-12.0); NEUTROPHIL # 3.1 10^3/uL (1.8-7.7); NEUTROPHILS % 52.9 % (41.0-85.0); RED CELL DISTRIBUTION WIDTH 11.7 % (11.5-14.5); WHITE BLOOD CELL 5.9 10^3/uL (4.5-11.0)
[2019-04-24 05:41] LABS: CALCIUM 9.2 mg/dL (8.4-10.5)
[2019-04-24] MEDS: ZOFRAN IV PRN (05:46)
[2019-04-24 07:11] VITALS: BP 142/99
[2019-04-24] MEDS: TOPROL XL PO SCH (08:13)
[2019-04-24] MEDS: PROTONIX PO SCH (08:13)
[2019-04-24] MEDS: LIORESAL PO PRN (08:14)
[2019-04-24] MEDS: COZAAR PO SCH (08:14)
--- NOTE | 2019-04-24 09:54 | NUR ---
STATUS Pt C/O OF "ACHING, PAIN ALL OVER BODY, BURNING ON KENIA ARMS AT 8/10". STATES "FRUSTRATED WANT TO KNOW WHAT IS GOING ON BESIDE PNEUMONIA, THIS NURSE REASSURED THAT DR BERGMAN WILL BE NOTIFIED ABOUT HER CONCERN, Pt VERBALIZED UNDERSTAND.ADMINSITREDE 30 MG IV TORADOL WILL REASSESS THE Pt AGAIN.
[2019-04-24] MEDS ORDERED: AMOX1TAB63 PO (11:21)
[2019-04-24] MEDS ORDERED: BACL10TA PO (11:21)
[2019-04-24] MEDS ORDERED: AZIT250T14 PO (11:21)
[2019-04-24] MEDS ORDERED: KETO10TA PO (11:23)
--- NOTE | 2019-04-24 11:34 | PRM.DC ---
Discharge Summary Date of Discharge: Apr 24, 2019 Time of Request to Discharge: 11:30 Reason for Visit: dyspnea x 10 days Hospital Course Patient admitted for failed outpatient treatment of community acquired Pneumonia. CT suggestive of aspiration pneumonia. Patient treated with IV abx with improvement in overall symptoms. Patient has having severe muscle spams and mild chronic migraines. Patient will be d/c on course of PO abx and muscle relaxors and NSAIDs for symptoms. Patient counseled to f/u with PCP within 1 week. Return precautions given. General: Alert, Oriented X3, Cooperative, No acute distress HEENT: Atraumatic, PERRLA, EOMI, Mucous membr. moist/pink Neck: Supple, No JVD Lungs: Clear to auscultation, Normal air movement Heart: Regular rate, Normal S1, Normal S2, No murmurs Abdomen: Normal bowel sounds, Soft, No tenderness Extremities: No edema, Normal pulses, No tenderness/swelling Skin: No rashes, No breakdown, No significant lesion Neuro: Normal gait, Normal speech, Strength at 5/5 X4 ext, Normal tone, Sensation intact, Cranial nerves 3-12 NL Psych/Mental Status: Mental status NL, Mood NL Scheduled Amoxicillin/Potassium Clav (Augmentin 875-125 Tablet), 1 TAB PO BID Azithromycin (Azithromycin), 250 MG PO DAILY24 Ketorolac Tromethamine (Ketorolac Tromethamine), 10 MG PO BID Levothyroxine Sodium (Levothyroxine Sodium), 1 TAB PO DAILY, (Reported) Losartan Potassium (Losartan Potassium), 1 TAB PO DAILY, (Reported) Metoprolol Succinate (Metoprolol Succinate), 1 TAB PO DAILY, (Reported) Sumatriptan Succinate (Imitrex), 100 MG PO DAILY24, (Reported) Scheduled PRN Baclofen (Baclofen), 10 MG PO QID PRN for MUSCLE SPASM Sepsis Evaluation @ Discharge Vital Sign - Last 24 Hours 04/21/19 04/21/19 04/21/19 04/21/19 10:24 10:24 10:47 11:47 Temp 98.8 98.8 98.8 98.8 Pulse 125 127 125 117 Resp 17 17 17 B/P (MAP) 145/98 (114) 135/84 (101) Pulse Ox 97 97 O2 Delivery Room Air Room Air Laboratory Tests Test 04/21/19 11:15 04/21/19 11:17 04/21/19 11:19 White Blood Count 8.9 10^3/uL Red Blood Count 3.62 10^6/uL Hemoglobin 13.0 g/dL Hematocrit 37.5 % Mean Corpuscular Volume 103.6 fL Mean Corpuscular Hemoglobin 35.9 pg Mean Corpuscular Hemoglobin Concent 34.7 g/dL Red Cell Distribution Width 12.1 % Platelet Count 329 10^3/uL Mean Platelet Volume 9.1 fL Neutrophils (%) (Auto) 84.0 % Lymphocytes (%) (Auto) 8.9 % Monocytes (%) (Auto) 3.8 % Neutrophils # (Auto) 7.5 10^3/uL Lymphocytes # (Auto) 0.8 10^3/uL Monocytes # (Auto) 0.3 10^3/uL Absolute Immature Granulocyte (auto 0.03 10^3 u/L Immature Granulocytes % 0.30 % Eosinophils % 2.7 % Basophils % 0.3 % Basophils # 0.0 10^3/uL Erythrocyte Sedimentation Rate 56 mm/hr Eosinophil Count 0.2 10^3/uL Prothrombin Time 9.9 SEC Prothrombin Time INR (Non-Therap) 1.0 Activated Partial Thromboplast Time 24.5 SEC D-Dimer 1.20 mg/L Sodium Level 139 mmol/L Potassium Level 4.2 mmol/L Chloride Level 105.0 mmol/L Carbon Dioxide Level 25.8 mmol/L Anion Gap 12.4 Blood Urea Nitrogen 5 mg/dL Creatinine 0.90 mg/dL Estimated GFR () 79.6 BUN/Creatinine Ratio 5.0 Glucose Level 95 mg/dL Calcium Level 9.3 mg/dL Total Bilirubin 0.6 mg/dL Aspartate Amino Transf (AST/SGOT) 19 U/L Alanine Aminotransferase (ALT/SGPT) 23 U/L Alkaline Phosphatase 88 U/L Total Creatine Kinase 36 U/L Troponin I < 0.02 ng/mL C-Reactive Protein 11.89 mg/dL Pro-B-Type Natriuretic Peptide 260 pg/mL Total Protein 7.6 g/dL Albumin 3.3 g/dL Globulin 4.3 Urine Opiates, Qualitative NEGATIVE ng/mL Urine Methadone, Qualitative NEGATIVE ng/mL Urine Amphetamine Qualitative NEGATIVE ng/mL Urine Barbiturates, Qualitative NEGATIVE ng/mL Urine Phencyclidine Screen NEGATIVE ng/mL Urine MDMA (Ecstasy), Qualitative NEGATIVE ng/mL Urine Benzodiazepines Screen POSITIVE ng/mL Urine Cocaine Qualitative NEGATIVE ng/mL Ur Tetrahydrocannabinol (THC) Scrn NEGATIVE ng/mL Helicobacter pylori Screen POSITIVE HIV-1 Antibody NON-REACTIVE HIV-2 Antibody NON-REACTIVE Influenza Type A Antigen NEGATIVE Influenza B Immunofluorescence NEGATIVE Urine Collection Type VOID Urine Color YELLOW Urine Appearance CLEAR Urine Bilirubin NEGATIVE MG/DL Urine Ketones NEGATIVE Urine Specific [place] 1.005 Urine pH 6 Urine Protein NEGATIVE Urine Urobilinogen NORMAL Urine Nitrate NEGATIVE Urine Leukocyte Esterase NEGATIVE Urine Blood NEGATIVE Urine Glucose NORMAL Course Sepsis Screening Results: Posi: NEGATIVE Sepsis Qualifier/Stage: NO DEFINITE RISK Duration or Total Time Spent w: 1 hr Vitals & review Data Vital Sign - Last 24 Hours 04/21/19 04/21/19 04/21/19 04/21/19 10:24 10:24 10:47 11:47 Temp 98.8 98.8 98.8 98.8 Pulse 125 127 125 117 Resp 17 17 17 B/P (MAP) 145/98 (114) 135/84 (101) Pulse Ox 97 97 O2 Delivery Room Air Room Air Laboratory Tests Test 04/21/19 11:15 04/21/19 11:17 04/21/19 11:19 White Blood Count 8.9 10^3/uL Red Blood Count 3.62 10^6/uL Hemoglobin 13.0 g/dL Hematocrit 37.5 % Mean Corpuscular Volume 103.6 fL Mean Corpuscular Hemoglobin 35.9 pg Mean Corpuscular Hemoglobin Concent 34.7 g/dL Red Cell Distribution Width 12.1 % Platelet Count 329 10^3/uL Mean Platelet Volume 9.1 fL Neutrophils (%) (Auto) 84.0 % Lymphocytes (%) (Auto) 8.9 % Monocytes (%) (Auto) 3.8 % Neutrophils # (Auto) 7.5 10^3/uL Lymphocytes # (Auto) 0.8 10^3/uL Monocytes # (Auto) 0.3 10^3/uL Absolute Immature Granulocyte (auto 0.03 10^3 u/L Immature Granulocytes % 0.30 % Eosinophils % 2.7 % Basophils % 0.3 % Basophils # 0.0 10^3/uL Erythrocyte Sedimentation Rate 56 mm/hr Eosinophil Count 0.2 10^3/uL Prothrombin Time 9.9 SEC Prothrombin Time INR (Non-Therap) 1.0 Activated Partial Thromboplast Time 24.5 SEC D-Dimer 1.20 mg/L Sodium Level 139 mmol/L Potassium Level 4.2 mmol/L Chloride Level 105.0 mmol/L Carbon Dioxide Level 25.8 mmol/L Anion Gap 12.4 Blood Urea Nitrogen 5 mg/dL Creatinine 0.90 mg/dL Estimated GFR () 79.6 BUN/Creatinine Ratio 5.0 Glucose Level 95 mg/dL Calcium Level 9.3 mg/dL Total Bilirubin 0.6 mg/dL Aspartate Amino Transf (AST/SGOT) 19 U/L Alanine Aminotransferase (ALT/SGPT) 23 U/L Alkaline Phosphatase 88 U/L Total Creatine Kinase 36 U/L Troponin I < 0.02 ng/mL C-Reactive Protein 11.89 mg/dL Pro-B-Type Natriuretic Peptide 260 pg/mL Total Protein 7.6 g/dL Albumin 3.3 g/dL Globulin 4.3 Urine Opiates, Qualitative NEGATIVE ng/mL Urine Methadone, Qualitative NEGATIVE ng/mL Urine Amphetamine Qualitative NEGATIVE ng/mL Urine Barbiturates, Qualitative NEGATIVE ng/mL Urine Phencyclidine Screen NEGATIVE ng/mL Urine MDMA (Ecstasy), Qualitative NEGATIVE ng/mL Urine Benzodiazepines Screen POSITIVE ng/mL Urine Cocaine Qualitative NEGATIVE ng/mL Ur Tetrahydrocannabinol (THC) Scrn NEGATIVE ng/mL Helicobacter pylori Screen POSITIVE HIV-1 Antibody NON-REACTIVE HIV-2 Antibody NON-REACTIVE Influenza Type A Antigen NEGATIVE Influenza B Immunofluorescence NEGATIVE Urine Collection Type VOID Urine Color YELLOW Urine Appearance CLEAR Urine Bilirubin NEGATIVE MG/DL Urine Ketones NEGATIVE Urine Specific [place] 1.005 Urine pH 6 Urine Protein NEGATIVE Urine Urobilinogen NORMAL Urine Nitrate NEGATIVE Urine Leukocyte Esterase NEGATIVE Urine Blood NEGATIVE Urine Glucose NORMAL Sepsis Infection Criteria Pres: Documented Infection LEVEL 1 SEPSIS INFECTION CRITE: ABX Therapy, Flu-Pneumonia LEVEL 2-SIRS (LIST ALL THAT AP: None/Not assessed Cardiovascular Evidence: Not Assessed or None Hematologic Evidence: None/Not assessed Hepatic Evidence: None/Not assessed Metabolic Evidence: None/Not assessed Neurological Evidence: None/Not assessed Respiratory Evidence: None/Not assessed Renal Evidence: None/Not assessed O2 Sat by Pulse Oximetry: 94 Plan Discharge Date: Apr 24, 2019 Dicharge DX: Community acquired pneumonia, muscle spasm Discharge Disposition: Stable Plan ok to d/c to home self care medications: per med rec list Diet: regular Activity: as tolerated Return to care for worsening/concerning symptoms F/U with PCP within 1 week. MADDY BERGMAN MD Apr 24, 2019 11:34
[2019-04-24 12:20] VITALS: BP 144/100
[2019-04-24] MEDS: ZITHROMAX 500 MG in NS 250ML 250 ML IV SCH (13:03)
[2019-04-24] MEDS: HNS 1000ML/KCL 20MEQ 1,000 ML IV SCH (13:03)
[2019-04-24 13:45] VITALS: BP 144/100
--- NOTE | 2019-04-24 13:45 | NUR ---
DISCHARGED Pt DISCHARGED TO HOME FORM THE HOSPITAL, EDUCATED ON DISCHARGE PACKET AND PRESCRIPTION Pt VERBALIZED UNDERSTANDING. IV D/C
== END 2019-04-24 13:49 | disposition home or self-care (01) | DRG 195 ==
LOC: ER 10:14 → MS 11:51
PROVIDERS: ADMIT Family Medicine; ATTEND Family Medicine
DX: J18.9 Pneumonia, unspecified organism (principal); J06.9 Acute upper respiratory infection, unspecified; I10 Essential (primary) hypertension; E03.9 Hypothyroidism, unspecified; B37.9 Candidiasis, unspecified; G43.909 Migraine, unspecified, not intractable, without status migrainosus; M62.838 Other muscle spasm; Z98.84 Bariatric surgery status; Z79.899 Other long term (current) drug therapy
CPT/HCPCS: 36415; 71046; 71275; 80053; 80307; 81002; 82550; 83880; 84484; 85025; 85379; 85610; 85651; 85730; 86140; 86318; 86677; 87040; 87804; 93005; 94640; 99285; G0378; J0456; J1100; J1170; J1650; J1885; J2270; J2405; J2543; J3370; J3490; J7030; J7050; J7512; J7620; Q9967; J2274